=== PATIENT | male | born 1945 | race Caucasian/White ===

== ENCOUNTER 2019-07-30 12:44 | Outpatient (CLI) | payer OTHER, SELFPAY ==
--- NOTE | 2019-07-30 13:01 | CT_ITS ---
WS: [id number] CT ANGIOGRAM CEREBRAL AND CAROTID ARTERIES HISTORY: OCCLUSION AND STENOSIS OF LEFT CAROTID SYSTEM TECHNIQUE: CT angiogram is performed of the carotid and cerebral arteries. During arterial injection imaging is obtained from the skull vertex to the aortic arch in 1.25 mm imaging. Coronal and sagittal reformats are submitted. Additional multi planar reformats of the carotid and cerebral arteries are submitted, MIP imaging also reviewed. NASCET criteria utilized. All CT scans at [facility] use at least one of these dose optimization techniques: automated exposure control; mA and/or kV ad justment per patient size (includes targeted exams where dose is matched to clinical indication); or iterative reconstruction. CONTRAST: Visipaque 320; 95 mL IV. DLP: 1275.74 mGycm COMPARISON: Carotid ultrasound 06/11/2019 Carotid Angiogram: Right carotid: Common carotid artery: Scattered plaque in the mid carotid artery. No significant stenosis. Internal carotid artery: Calcified plaque with no significant stenosis. External carotid artery: Patent. Left carotid: Common carotid artery: Arises normally from the arch. Focal plaquing in the mid common carotid artery . Not causing a significant stenosis. There is mild stenosis just distal to the carotid plaque. Steno sis in the mid common carotid artery is just less than 50%. Internal carotid artery: Moderate amount of calcified plaque at bifurcation and origin. Stenosis calc ulated at 30%. Calcified plaque extends into the proximal internal carotid artery. External carotid artery: Patent. Right vertebral artery: Unremarkable. Left vertebral artery: Unremarkable. Arises normally from the subclavian artery. Subclavian arteries: Moderate calcified plaque at the origins of the subclavian, LEFT greater than RI GHT. 50-60% stenosis involving the LEFT subclavian artery, stenosis is proximal to the vertebral tawny ry origin. Upper thorax: No pneumonia or nodules. Small mediastinal and hilar lymph nodes. Calcified plaque with in the aortic arch. Thyroid gland: Normal. Osseous structures: Anterior cervical fusion at C5-6. CEREBRAL ANGIOGRAM: Intracranial vertebral arteries: Normal with no significant atherosclerosis. Basilar artery: No significant stenosis or occlusion. No aneurysm. Intracranial Internal carotid arteries: Moderate calcified plaque through the cavernous sinuses and s upraclinoid carotid. Middle cerebral arteries: Normal. Anterior cerebral arteries and ACOM: Normal. Posterior cerebral arteries and PCOM's: Normal. Dural venous sinuses are normally enhancing. Mastoid air cells: Normal. Paranasal sinuses: Near complete opacification of the RIGHT maxillary sinus and moderate opacificatio n LEFT maxillary sinus. Calvarium: Calvarium thickening and adjacent dural calcification in the LEFT parietal region. May be from prior trauma and calcification from prior hemorrhage. Benign in appearance. CT/CT angio headneck* [id number] IMPRESSION: 1. Bilateral ICA stenosis less than 50%. 2. Mid LEFT common carotid artery stenosis estimated at just less than 50%. 3. Proximal LEFT subclavian artery stenosis 50-60%.
[2019-07-30 13:35] LABS: Blood Urea Nitrogen 16 mg/dL (8-23)
[2019-07-30] MEDS: iodixanol 320 mg/mL 100mL Btl IV (13:46)
== END 2019-07-30 12:45 | disposition home or self-care (01) ==
LOC: RADWPI 12:53
PROVIDERS: PCP Family Medicine; Visit Provider Family Medicine
DX: I65.22 Occlusion and stenosis of left carotid artery (principal); I70.8 Atherosclerosis of other arteries; E11.9 Type 2 diabetes mellitus without complications; E66.9 Obesity, unspecified; I10 Essential (primary) hypertension; E71.19 Other disorders of branched-chain amino-acid metabolism
CPT/HCPCS: 70496; 70498; 82565; 84520; Q9967